=== PATIENT | female | born 1975 | race Caucasian/White ===

== ENCOUNTER 2018-05-02 12:32 | Emergency (ER) | payer OTHER ==
[~2018-05-02] VITALS: Ht 175.3 cm; Wt 101.0 kg
[~2018-05-02 12:32] MED LIST: FIORIC PO; MOTI25CH PO; ONDA1TAB16 PO
[2018-05-02 12:35] VITALS: BP 115/55; PULSE 78; RESP 16; TEMP 97.8; O2SAT 99
[2018-05-02] MEDS ORDERED: BUTA1CAP PO (12:43)
[2018-05-02] MEDS ORDERED: ZOFR4TAB PO (12:43)
--- NOTE | 2018-05-02 12:52 | PD ---
HPI Chief Complaint: Headache Time Seen by Provider: 12:42 Travel History International Travel<30 days: No Contact w/Intl Traveler<30days: No Traveled to known affect area: No History of Present Illness HPI 43-year-old female with a history of migraines presents emergency department complaining of a migraine that started this morning. Says this morning she started feeling a pain in her left upper forehead and scalp and has worsened throughout the day. Patient says that the pain worsened around 8:00 and she decided she was going to come into the emergency department for evaluation. She has associated nausea with vomiting. Says that the pain is similar to her previous episodes and has headaches that are difficult to control about once a year. Says she normally takes Motrin and her headaches go away. Says that she has Fioricet as well in case the Motrin does not help. She does not take any medication this morning. Says she has mild photophobia but denies aura, numbness or tingling, weakness, stiff neck. PFSH Past Medical History Diminished Hearing: No Migraines: Yes Influenza Vaccination: No ?: Not Menopausal: Yes Tubal Ligation: Yes Past Surgical History Section: Yes Hysterectomy: Yes Social History Alcohol Use: Yes Tobacco Use: No Substance Use: No Allergies-Medications (Allergen,Severity, Reaction): Coded Allergies: fluconazole (Unverified Allergy, Intermediate, 05/02/18) Reported Meds & Prescriptions Reported Meds & Active Scripts Active Reported Zofran (Ondansetron HCl) 4 Mg Tab 4 Mg PO Q6HR PRN Fioricet (Uxuvednbqx-Wyiowiceiscse-Mekrcimy) 50-300-40 Mg Cap 1 Cap PO Q4H PRN Review of Systems Except as stated in HPI: all other systems reviewed are Neg Physical Exam Narrative GENERAL: Well-developed, well-nourished no apparent distress SKIN: Focused skin assessment warm/dry. HEAD: Atraumatic. Normocephalic. EYES: Pupils equal and round. No scleral icterus. No injection or drainage. EOMI ENT: No nasal bleeding or discharge. Mucous membranes pink and moist. NECK: Trachea midline. No JVD. No meningismus CARDIOVASCULAR: Regular rate and rhythm. No murmur appreciated. RESPIRATORY: No accessory muscle use. Clear to auscultation. Breath sounds equal bilaterally. MUSCULOSKELETAL: No obvious deformities. No clubbing. No cyanosis. No edema. NEUROLOGICAL: Awake and alert. Cranial nerves II through XII intact. Motor and sensory grossly within normal limits. Five out of 5 muscle strength in all muscle groups. Normal speech. PSYCHIATRIC: Appropriate mood and affect; insight and judgment normal. Data Data Last Documented VS Vital Signs Date Time Temp Pulse Resp B/P (MAP) Pulse Ox O2 Delivery O2 Flow Rate FiO2 05/02/18 12:35 97.8 78 16 115/55 (75) 99 Orders Orders Ketorolac Inj (Toradol Inj) (05/02/18 13:00) Promethazine Inj (Phenergan Inj) (05/02/18 13:00) [facility] Medical Decision Making Medical Screen Exam Complete: Yes Emergency Medical Condition: Yes Differential Diagnosis Headache, migraine, status migrainosus Narrative Course 43-year-old female presents emergency department for evaluation of a headache that started this morning upon waking. Patient says that normally she is able to abort the headaches with medication however, she did not take her medication within a timely manner so her headache has worsened throughout the day. the headache started in her left frontal and parietal area and has become more intense. Says she has associated nausea with vomiting. Says he tried to take Zofran however, was unable to keep this down. She says these headaches are similar to previous episodes of severe headache since and denies any neuro deficits. She says that when her headaches are this bad, she is given Toradol and nausea medication and her headache is improved. Says she has Fioricet at home and just received a refill. Physical exam findings unremarkable. No neuro deficits. Patient given Toradol and Phenergan in the emergency department today. She says her symptoms have improved. Patient will be discharged home and advised follow-up with a primary care physician. Advised to continue using her home medication for her headaches. Avoid triggers to cause her headache. Diagnosis Primary Impression: Migraine Qualified Codes: G43.009 - Migraine without aura, not intractable, without status migrainosus Referrals: Primary Care Physician Additional Instructions: Continue to take medications as prescribed. Ensure adequate fluid intake and proper nutrition. Avoid triggers to cause your headache. Disposition: 01 DISCHARGE HOME Condition: Stable Ester Blackburn May 02, 2018 12:52
[2018-05-02] MEDS ORDERED: KETOROLAC TROMETHAMINE 60 MG/2 ML (IM) VIAL IM ONE (13:00)
[2018-05-02] MEDS ORDERED: PROMETHAZINE INJ 25 MG/ML VIAL IM ONE (13:00)
== END 2018-05-02 13:54 | disposition home or self-care (01) ==
LOC: PHEFT 12:32
DX: G43.009 Migraine without aura, not intractable, without status migrainosus (principal); R11.2 Nausea with vomiting, unspecified; Z88.8 Allergy status to other drugs, medicaments and biological substances; Z79.899 Other long term (current) drug therapy
CPT/HCPCS: 96372; 99283; J1885; J2550